=== PATIENT | male | born 1960 | race Caucasian/White ===

== ENCOUNTER 2018-12-17 10:04 | Outpatient (CLI) | payer BC ==
[2018-12-17] MEDS ORDERED: VITA1TAB85 PO (11:06)
== END 2018-12-17 23:59 | disposition home or self-care (01) ==
LOC: STAR 10:04
PROVIDERS: ATTEND Orthopaedic Surgery
DX: Z02.9 Encounter for administrative examinations, unspecified (principal)

== ENCOUNTER 2018-12-23 06:17 | Day surgery (SDC) | payer BC ==
[~2018-12-23] VITALS: Ht 177.8 cm; Wt 85.0 kg
[~2018-12-23 06:17] MED LIST: VITA1TAB85 PO
[2018-12-23] MEDS ORDERED: EPINEPHRINE 1 MG/ML, 1ML ONE (06:32)
[2018-12-23] MEDS ORDERED: BUPIVACAINE/PF 0.25% ONE (06:32)
[2018-12-23] MEDS ORDERED: FENTANYL PF 250 MCG/5ML ONE (06:40)
[2018-12-23] MEDS ORDERED: MIDAZOLAM 1 MG/ML, 2ML ONE (06:40)
[2018-12-23] MEDS ORDERED: LACTATED RINGERS 1,000 ML IV SCH (07:07)
[2018-12-23 07:10] VITALS: BP 139/90
[2018-12-23] MEDS ORDERED: LIDOCAINE-MPF 1%, 2ML INFIL ONE (07:30)
[2018-12-23] MEDS ORDERED: SCOPOLAMINE PATCH, 1.5MG PATCH.TD72 TD ONE ×2 (07:50→08:00)
[2018-12-23] MEDS ORDERED: GABAPENTIN 300 MG CAPSULE ONE (07:50)
[2018-12-23] MEDS ORDERED: ACETAMINOPHEN 500 MG TABLET ONE (07:51)
[2018-12-23] MEDS ORDERED: ACETAMINOPHEN 500 MG TABLET PO ONE (08:00)
[2018-12-23] MEDS ORDERED: GABAPENTIN 300 MG CAPSULE PO ONE (08:00)
[2018-12-23] MEDS ORDERED: CEFAZOLIN 1,000 MG ONE (08:06)
[2018-12-23] MEDS ORDERED: SUCCINYLCHOLINE 20 MG/ML, 10ML ONE (08:06)
[2018-12-23] MEDS ORDERED: DEXAMETHASONE 4 MG/ML, 1ML ONE (08:06)
[2018-12-23] MEDS ORDERED: PROPOFOL 10 MG/ML, 20ML ONE (08:06)
[2018-12-23] MEDS ORDERED: ROCURONIUM 10 MG/ML,10ML ONE (08:06)
[2018-12-23] MEDS ORDERED: ONDANSETRON 2MG/ML, 2ML ONE (08:06)
[2018-12-23] MEDS ORDERED: LABETALOL 5MG/ML, 20ML IV PRN (09:00)
[2018-12-23] MEDS ORDERED: PROMETHAZINE 25 MG/ML, 1ML IV PRN (09:00)
[2018-12-23] MEDS ORDERED: ONDANSETRON 2MG/ML, 2ML IVPush PRN (09:00)
[2018-12-23] MEDS ORDERED: MEPERIDINE/PF 25MG/0.5ML IVPush PRN (09:00)
[2018-12-23] MEDS ORDERED: OXYcodone 5 MG/5 ML ORAL.SOL UDC PO PRN (09:00)
[2018-12-23] MEDS ORDERED: KETOROLAC 30 MG/1 ML IV PRN (09:00)
[2018-12-23] MEDS ORDERED: HYDROmorphone 1 MG/ML, 1ML INJ IV PRN (09:00)
[2018-12-23] MEDS ORDERED: FENTANYL PF 100 MCG/2ML IV PRN (09:00)
[2018-12-23] MEDS ORDERED: hydrALAzine 20 MG/ML, 1ML IV PRN (09:00)
[2018-12-23] MEDS ORDERED: ALBUTEROL SULFATE 2.5 MG/3 ML NPPB PRN (09:00)
[2018-12-23] MEDS ORDERED: METOCLOPRAMIDE 5 MG/ML, 2ML IV PRN (09:00)
== END 2018-12-23 11:45 | disposition home or self-care (01) ==
LOC: OUT 06:17
PROVIDERS: ATTEND Orthopaedic Surgery
DX: S46.011A Strain of muscle(s) and tendon(s) of the rotator cuff of right shoulder, initial encounter (principal); S43.431A Superior glenoid labrum lesion of right shoulder, initial encounter; M75.41 Impingement syndrome of right shoulder; M75.51 Bursitis of right shoulder; I10 Essential (primary) hypertension; X58.XXXA Exposure to other specified factors, initial encounter; Y93.64 Activity, baseball; Y92.89 Other specified places as the place of occurrence of the external cause; Y99.8 Other external cause status
CPT/HCPCS: 29823; 29826; 29827; 64415; C1713; J0171; J0330; J0690; J1100; J2250; J2405; J2704; J3010; J3490; J7120

== ENCOUNTER 2020-10-11 15:32 | Inpatient (IN) | payer BC ==
[~2020-10-11] VITALS: Ht 177.8 cm; Wt 86.0 kg
[2020-10-11 16:47] LABS: BASOPHILS % (AUTO) 0 % (0-1); EOSINOPHILS % (AUTO) 0 % (1-7); LYMPHOCYTES % (AUTO) 8 % (22-44); MEAN CORPUSCULAR HEMOGLOBIN 29.3 pg (27.5-34.5); MEAN CORPUSCULAR HGB CONC 34.8 g/dL (33.2-36.2); MEAN PLATELET VOLUME 7.1 fL (7.4-10.4); MONOCYTES % (AUTO) 11 % (2-9); NEUTROPHILS % (AUTO) 80 % (42-75); PLATELET COUNT 380 x10^3/uL (130-400); RED BLOOD COUNT 5.35 x10^6/uL (4.38-5.82); RED CELL DISTRIBUTION WIDTH 13.9 % (9.4-14.8)
[2020-10-11 17:00] LABS: ALBUMIN 3.8 g/dL (3.4-5.0); ANION GAP 6 mmol/L (5-15); CALCIUM 9.8 mg/dL (8.5-10.1); CHLORIDE 99 mmol/L (98-107)
[2020-10-11] MEDS ORDERED: AMPICILLIN/SULBACTAM 3 GM in SODIUM CHLORIDE 0.9% 100 ML IV ONE (17:00)
[2020-10-11 17:01] LABS: CREATININE 1.24 mg/dL (0.7-1.3)
[2020-10-11] MEDS ORDERED: MORPHINE SULFATE 4 MG/ML, 1ML IVPush ONE (17:30)
[2020-10-11] MEDS ORDERED: SODIUM CHLORIDE 0.9% 1,000ML IVBOLUS ONE (17:30)
[2020-10-11] MEDS ORDERED: ONDANSETRON 2MG/ML, 2ML IVPush ONE (17:30)
[2020-10-11] MEDS ORDERED: OMNIPAQUE 350 MG/ML, 75ML BOTTLE ONE (17:47)
[2020-10-11] MEDS ORDERED: PROMETHAZINE 25 MG/ML, 1ML IVPush PRN (18:00)
[2020-10-11] MEDS ORDERED: OXYcodone 5 MG/5 ML ORAL.SOL UDC PO PRN (18:00)
[2020-10-11] MEDS ORDERED: ACETAMINOPHEN 325 MG TABLET PO PRN ×2 (18:00→21:30)
[2020-10-11] MEDS ORDERED: FENTANYL PF 100 MCG/2ML IV PRN (18:00)
[2020-10-11] MEDS ORDERED: MIDAZOLAM 1 MG/ML, 2ML IV PRN (18:00)
[2020-10-11] MEDS ORDERED: LABETALOL 5MG/ML, 20ML IV PRN (18:00)
[2020-10-11] MEDS ORDERED: BUPIVACAINE/PF 0.25% ONE (18:21)
[2020-10-11] MEDS ORDERED: EPINEPHRINE 1 MG/ML, 1ML ONE (18:21)
[2020-10-11] MEDS ORDERED: LIDOCAINE 1%, 20ML ONE (18:21)
--- NOTE | 2020-10-11 18:23 | NUR ---
REPORT TO RAMILA GUILLEN OR
[2020-10-11] MEDS ORDERED: FENTANYL PF 100 MCG/2ML ONE ×2 (18:26→19:49)
[2020-10-11] MEDS ORDERED: LIDOCAINE-MPF 2% ,5ML ONE (19:00)
[2020-10-11] MEDS ORDERED: KETOROLAC 30 MG/1 ML ONE (19:00)
[2020-10-11] MEDS ORDERED: PROPOFOL 10 MG/ML, 20ML ONE (19:00)
[2020-10-11] MEDS ORDERED: ONDANSETRON 2MG/ML, 2ML ONE (19:00)
[2020-10-11] MEDS ORDERED: DEXAMETHASONE 4 MG/ML, 1ML ONE (19:00)
[2020-10-11] MEDS ORDERED: SUCCINYLCHOLINE 20 MG/ML, 10ML ONE (19:00)
[2020-10-11] MEDS ORDERED: ACETAMINOPHEN 650 MG/20.3 ML UDC ONE (19:55)
[2020-10-11] MEDS ORDERED: OXYcodone 5 MG/5 ML ORAL.SOL UDC ONE (19:55)
[2020-10-11 20:45] VITALS: BP 127/82
[2020-10-11] MEDS ORDERED: CHLORHEXIDINE GLUCONATE MOUTHWASH 0.12%, 473ML MM SCH (21:00)
[2020-10-11] MEDS ORDERED: morphine SULFATE 10 MG/ML, 1ML IVPush PRN (21:30)
[2020-10-11] MEDS ORDERED: HYDROcodone/APAP 5/325 TABLET PO PRN (21:30)
[2020-10-11] MEDS ORDERED: LABETALOL 5MG/ML, 20ML IVPush PRN (21:30)
[2020-10-11] MEDS ORDERED: ONDANSETRON 2MG/ML, 2ML IVPush PRN (21:30)
[2020-10-11] MEDS: SODIUM CHLORIDE 0.9% 1,000 ML IV SCH (23:07)
[2020-10-11] MEDS: CHLORHEXIDINE 15 ML UDC MM SCH (23:44)
[2020-10-11] MEDS: AMPICILLIN/SULBACTAM 3 GM in SODIUM CHLORIDE 0.9% 100 ML IV SCH (23:44)
[2020-10-12 00:58] VITALS: BP 122/77
[2020-10-12 04:37] VITALS: BP 111/72
[2020-10-12] MEDS: AMPICILLIN/SULBACTAM 3 GM in SODIUM CHLORIDE 0.9% 100 ML IV SCH ×2 (06:05→11:00)
[2020-10-12 06:43] LABS: BASOPHILS % (AUTO) 0 % (0-1); EOSINOPHILS % (AUTO) 0 % (1-7); LYMPHOCYTES % (AUTO) 6 % (22-44); MEAN CORPUSCULAR HEMOGLOBIN 28.5 pg (27.5-34.5); MEAN CORPUSCULAR HGB CONC 33.7 g/dL (33.2-36.2); MEAN PLATELET VOLUME 7.3 fL (7.4-10.4); MONOCYTES % (AUTO) 7 % (2-9); NEUTROPHILS % (AUTO) 87 % (42-75); PLATELET COUNT 347 x10^3/uL (130-400); RED BLOOD COUNT 4.53 x10^6/uL (4.38-5.82); RED CELL DISTRIBUTION WIDTH 13.8 % (9.4-14.8)
[2020-10-12 06:53] VITALS: BP 125/76
[2020-10-12 06:53] LABS: ANION GAP 7 mmol/L (5-15); CALCIUM 8.8 mg/dL (8.5-10.1); CHLORIDE 105 mmol/L (98-107); CREATININE 0.97 mg/dL (0.7-1.3)
[2020-10-12] MEDS: SODIUM CHLORIDE 0.9% 1,000 ML IV SCH (08:00)
[2020-10-12] MEDS: CHLORHEXIDINE 15 ML UDC MM SCH (08:07)
[2020-10-12] MEDS ORDERED: CHLO473M MM ×3 (08:39→09:22)
[2020-10-12] MEDS ORDERED: AMOX1TAB64 PO ×3 (08:39→09:22)
[2020-10-12] MEDS ORDERED: HYDR-2214 PO ×3 (08:39→09:22)
[2020-10-12] MEDS ORDERED: SENNA/DOCUSATE TABLET PO SCH (09:00)
[2020-10-12 13:24] VITALS: BP 115/68
== END 2020-10-12 16:05 | disposition home or self-care (01) | DRG 157 ==
LOC: OR 17:58 → INTOOBSV 18:16 → OBSVTOIN 18:16 → EDIP 18:16 → 4NE 20:48
PROVIDERS: ADMIT Family Medicine; ATTEND Hospitalist
PROC: 0C9X0Z0 Drainage of Lower Tooth, Open Approach, Single (ICD-10-PCS; 2020-10-11)
PROC: 0CDXXZ0 Extraction of Lower Tooth, Single, External Approach (ICD-10-PCS; principal; 2020-10-11 17:30)
DX: K12.2 Cellulitis and abscess of mouth (principal); N17.0 Acute kidney failure with tubular necrosis; L03.211 Cellulitis of face; E87.1 Hypo-osmolality and hyponatremia; K04.7 Periapical abscess without sinus; K02.9 Dental caries, unspecified; Z20.822 Contact with and (suspected) exposure to COVID-19; D72.829 Elevated white blood cell count, unspecified; Z80.7 Family history of other malignant neoplasms of lymphoid, hematopoietic and related tissues
CPT/HCPCS: 36415; 96374; 99285; J3490; 70487; 80048; 82040; 85025; 87015; 87070; 87075; 87102; 87116; 87205; 87206; 87635; G0378; J0171; J0295; J1100; J1885; J2405; J2704; J3010; Q9967; J0330; J7030